=== PATIENT | female | born 1995 | race Caucasian/White ===

== ENCOUNTER 2023-02-05 20:38 | Emergency (ER) | payer OTHER, BC, MEDICAID, SELFPAY ==
[2023-02-05] VITALS (7 sets, daily range): BP systolic 110–136; BP diastolic 73–92; PULSE 67–93; RESP 13–20; TEMP 36.7; O2SAT 98–100
--- NOTE | 2023-02-05 20:53 | ECG_ITS ---
Measurements Intervals [place] Rate: 66 P: 38 AL: 136 QRS: 13 QRSD: 87 T: 18 QT: 404 QTc: 425 Interpretive Statements SINUS RHYTHM WITH SINUS ARRHYTHMIA MINIMAL Q WAVES- HIGH LATERAL LEADS BASELINE ARTIFACT- II, III, AVF BORDERLINE ECG NO PREVIOUS ECG AVAILABLE FOR COMPARISON Electronically Signed On 02-06-2023 6:19:52 CDT by Ramy Eid D.O.
--- NOTE | 2023-02-05 21:19 | ED.GENADULT ---
HPI - General Adult General Chief complaint: Arrhythmia/Palpitations Stated complaint: palpations Time Seen by Provider: 02/05/23 20:53 History of Present Illness HPI narrative: Patient a 19-year-old female presents emerged department with chief complaint of palpitations. Patient states over the last several days she has had several episodes where her heart rate got fast patient states she had an alarm from her Apple Watch patient states she did feel lightheaded when the episodes happen and it would last about 20 minutes. The patient states she has not episode today and decided come to the emergency department. The patient denies chest pain reports no prior history of cardiac disease reports no prior history of dysrhythmia reports no use of drugs reports no use of energy drink other than occasional usage which she describes 1 prior to a exercise session. Related Data Allergies Allergy/AdvReac Type Severity Reaction Status Date / Time No Known Allergies Allergy Verified 02/05/23 21:25 Review of Systems Review of Systems: A 10 system review of systems was completed on the patient and is negative except for what is stated in the HPI. Nursing and ancillary documentation was reviewed. Exam Narrative: GENERAL: Well-appearing, well-nourished, and in no acute distress. HEAD: Normocephalic, atraumatic. EYES: PERRLA and EOMI. ENT: Nares clear, no rhinorrhea or epistaxis. Mucous membranes moist. NECK: Supple. CHEST: Clear to auscultation. No respiratory distress. HEART: Regular rate and rhythm. No murmur heard. Normal peripheral pulses. ABDOMEN: Soft, nontender, nondistended, normal active bowel sounds. EXTREMITIES: Normal range of motion. No edema. SKIN: Warm, dry, no rash. NEURO: No focal deficits. Alert and oriented x3. PSYCH: Normal mood and affect. Course Vital Signs Vital signs: Vital Signs Temperature 36.7 C 02/05/23 20:47 Pulse Rate 85 02/05/23 20:47 Respiratory Rate 16 02/05/23 20:47 Blood Pressure 136/87 02/05/23 20:47 Pulse Oximetry 100 02/05/23 20:47 Oxygen Delivery Room Air 02/05/23 20:47 Temperature 36.7 C 02/05/23 20:47 Pulse Rate 81 02/05/23 22:30 Respiratory Rate 13 02/05/23 22:30 Blood Pressure 115/89 02/05/23 22:30 Pulse Oximetry 100 02/05/23 22:30 Oxygen Delivery Room Air 02/05/23 20:47 Medical Decision Making MDM Narrative Medical decision making narrative: Differential diagnosis includes palpitations, dysrhythmia, SVT dehydration electrolyte abnormality anemia Laboratory studies were obtained on the patient which showed a CBC with a white count of 8.8 hemoglobin was 12.8 electrolytes were within normal limits potassium was 3.8 renal function was normal with a BUN of 12 and a creatinine of 0.7 TSH was within normal limits magnesium was within normal limits urinalysis showed no evidence of UTI test was negative Vital Signs Vital Signs: Vital Signs Temperature 36.7 C 02/05/23 20:47 Pulse Rate 85 02/05/23 20:47 Respiratory Rate 16 02/05/23 20:47 Blood Pressure 136/87 02/05/23 20:47 Pulse Oximetry 100 02/05/23 20:47 Oxygen Delivery Room Air 02/05/23 20:47 Temperature 36.7 C 02/05/23 20:47 Pulse Rate 81 02/05/23 22:30 Respiratory Rate 13 02/05/23 22:30 Blood Pressure 115/89 02/05/23 22:30 Pulse Oximetry 100 02/05/23 22:30 Oxygen Delivery Room Air 02/05/23 20:47 Lab Data 02/05/23 21:16 02/05/23 21:16 Labs: Lab Results 02/05/23 02/05/23 Range/Units 21:16 21:17 WBC 8.8 (4.5-10.0) K/mm3 RBC 4.14 L (4.2-5.4) M/mm3 Hgb 12.8 (12.0-15.0) g/dL Hct 37.9 (37.0-47.0) % MCV 91.5 (80-100) fl MCH 30.9 (26-34) pg MCHC 33.8 (32-36) g/dl RDW 12.3 (11.5-14.5) % Plt Count 325 (150-375) k/mm3 MPV 10.6 H (7.4-10.4) fl Immature Gran % (Auto) 0.3 (0-0.5) % Neut % (Auto) 61.6 (45.5-73.1) % Lymph % (Auto) 27.1 (
[2023-02-05 21:23] LABS: Basophils Absolute Auto 0.1 K/mm3 (0.0-0.1); Basophils Percent Auto 0.6 % (0.2-1.2); Eosinophils Absolute Auto 0.2 K/mm3 (0-0.3); Eosinophils Percent Auto 1.9 % (0-4.4); Hematocrit 37.9 % (37.0-47.0); Hemoglobin 12.8 g/dL (12.0-15.0); Immature Granulocyte Absolute 0.03 K/mm3 (0.00-0.031); Immature Granulocyte Percent A 0.3 % (0-0.5); Lymphocytes Absolute Auto 2.39 K/mm3 (0.9-3.2); Lymphocytes Percent Auto 27.1 % (18.3-44.2); Mean Corpuscular HGB Conc 33.8 g/dl (32-36); Mean Corpuscular Hemoglobin 30.9 pg (26-34); Mean Corpuscular Volume 91.5 fl (80-100); Mean Platelet Volume 10.6 fl (7.4-10.4); Monocytes Absolute Auto 0.8 K/mm3 (0.1-0.6); Monocytes Percent Auto 8.5 % (2.6-8.5); Neutrophils Absolute Auto 5.4 K/mm3 (1.3-6.7); Neutrophils Percent Auto 61.6 % (45.5-73.1); Platelet Count Result 325 k/mm3 (150-375); Red Blood Count 4.14 M/mm3 (4.2-5.4); Red Cell Distribution Width 12.3 % (11.5-14.5); White Blood Count 8.8 K/mm3 (4.5-10.0)
[2023-02-05 21:33] LABS: INR 0.9; Prothrombin Time 12.8 Seconds (11.1-14.7)
[2023-02-05 21:34] LABS: Alanine Aminotransferase 27 U/L (6-35); Albumin Level 4.8 g/dL (3.5-5.1); Alkaline Phosphatase 56 U/L (38-126); Anion Gap 7 mmol/L (8-16); Aspartate Amino Transferase 29 U/L (14-36); Bilirubin,Total 0.7 mg/dL (0.2-1.3); Blood Urea Nitrogen 12 mg/dL (7-17); Calcium 9.5 mg/dL (8.4-10.2); Carbon Dioxide 26 mmol/L (22-30); Chloride 101 mmol/L (98-107); Estimated CRCL calculation 100 ml/min; Estimated Glomerular Filt Rate > 60; Glucose 91 mg/dL (65-110); Magnesium 1.9 mg/dL (1.6-2.3); Potassium 3.8 mmol/L (3.4-5.0); Sodium 134 mmol/L (137-145)
[2023-02-05 21:36] LABS: Appearance Urine Cloudy (Clear); Bacteria Urine 1+ /hpf; Bilirubin Urine Negative (Negative); Blood Urine Trace (Negative); Color Urine Yellow (Yellow); Glucose Urine UA Negative (Negative); Ketones Urine Negative (Negative); Leukocyte Esterase Ur Trace LEU/UL (Negative); Nitrate Urine Negative (Negative); Non Pathogenic Casts 0-2; Protein Urine Negative (Negative); RBC Urine 0-2 /hpf (0-2); Specific Grav Ur 1.013 (1.001-1.035); Squamous Epithelial Cell Urine Moderate /hpf (Few); Urobilinogen Urine 0.2 mg/dL (<2.0); WBC Urine 0-5 /hpf
[2023-02-05 21:41] LABS: Add Urine Microscopic? YES
== END 2023-02-05 22:56 | disposition home or self-care (01) ==
PROVIDERS: Emergency Provider Emergency Medicine
DX: R00.2 Palpitations (principal); R94.31 Abnormal electrocardiogram [ECG] [EKG]
CPT/HCPCS: 36415; 80053; 81001; 81025; 83735; 84443; 85025; 85610; 85730; 93005; 99283

== ENCOUNTER 2023-10-02 03:08 | Emergency (ER) | payer OTHER, SELFPAY ==
[2023-10-02 03:19] VITALS: BP 146/86; PULSE 85; RESP 18; TEMP 36.8; O2SAT 99
--- NOTE | 2023-10-02 03:22 | ED_ITS ---
HPI - General Adult General Chief complaint: Skin/Abscess/Foreign Body Stated complaint: ring stuck on thumb Time Seen by Provider: 10/02/23 03:11 History of Present Illness HPI narrative: Patient is a 28-year-old female who presents to the emergency department this morning unable to take out her thumb ring. Patient states that she went to and woke up this morning and noticed that her hands were a little bit swollen. Patient was able to take out all of her current except the 1 on her left thumb. Patient tried multiple ways to remove the ring with no success so she finally decided to come to the emergency department for further evaluation. She denies any additional symptoms or concerns at this time. Related Data Allergies Allergy/AdvReac Type Severity Reaction Status Date / Time No Known Allergies Allergy Verified 10/02/23 03:24 Review of Systems Review of Systems: All systems are reviewed and are negative unless stated otherwise in the HPI. Exam Narrative: General: Alert, awake, afebrile, in no acute distress. Cardiovascular: Regular rate and rhythm, no murmurs, rubs or gallops, no peripheral edema. Respiratory: Clear to auscultation bilaterally, no tachypnea, no wheezing, no rhonchi, no rubs, no respiratory distress. Abdomen: Soft, nontender, nondistended, no rebound, no guarding, no peritoneal signs. Musculoskeletal: Mild swelling to bilateral hands, ring noted along patient's left thumb, no erythema or evidence of infection. Skin: No rashes or petechia, no signs of infection. Neurological: Alert and oriented to person, place, and time. Follows all commands. No focal deficits, speech is clear and fluent. Medical Decision Making MDM Narrative Medical decision making narrative: The patient was evaluated by myself in the emergency department. History is obtained from patient who is an independent historian and physical exam was performed. External medical records were reviewed at this time. Patient's ring was the cut using trauma charley ring removal tool. Comorbidities impacting this visit include none I have evaluated and discussed social determinants of health with the patient t hat could potentially impact subsequent diagnosis and treatment plans. On repeat assessment of the patient, reevaluation revealed that the patient is doing well and is in no acute distress. Patient symptoms have improved since she arrived to our emergency department. Repeat vital signs were all reviewed and noted to be stable. Differential diagnosis and treatment plan were discussed with the patient at bedside. Patient agrees with discussion and after shared medical decision making agrees with discharge. All questions were answered to the patient's satisfaction. Patient will follow up with her PCP in 3-5 days. Patient was provided with strict return precautions and instructed to return to the emergency department if any new or worsening symptoms develop. The patient was discharged in stable condition. Discharge Plan Discharge Clinical Impression: Edema of hand Patient Disposition: Home, Self-Care Condition: Improved Instructions: Antibiotic Form, Edema (ED) Additional Instructions: Please follow-up with your primary care physician within the next 3-5 days. Return to the ED for any new or worsening symptoms develop. Follow-up/Referrals: PHYSICIAN NOT ON STAFF,NONSTAFF [Non-Staff] - Jose Schroeder MD [Physician] - 3 Days Time of Disposition: 03:28
[2023-10-02 03:23] VITALS: BP 146/86; PULSE 74; RESP 18; TEMP 36.8; O2SAT 100
== END 2023-10-02 03:45 | disposition home or self-care (01) ==
PROVIDERS: Emergency Provider Emergency Medicine
DX: R60.9 Edema, unspecified (principal); S60.342A External constriction of left thumb, initial encounter; W49.04XA Ring or other jewelry causing external constriction, initial encounter
CPT/HCPCS: 99281